=== PATIENT | female | born 1960 | race Caucasian/White ===

== ENCOUNTER 2017-12-19 09:59 | Day surgery (SDC) | payer BC ==
[2017-12-19] MEDS ORDERED: FENTAnyl 50 MCG/ML VIAL (11:44)
[2017-12-19] MEDS ORDERED: PROPOFOL 20 ML ×2 (11:44→12:33)
== END 2017-12-19 14:52 | disposition home or self-care (01) ==
LOC: GIL 09:59
DX: Z12.11 Encounter for screening for malignant neoplasm of colon (principal); D12.3 Benign neoplasm of transverse colon; K64.8 Other hemorrhoids; I10 Essential (primary) hypertension; E11.9 Type 2 diabetes mellitus without complications
CPT/HCPCS: 45380; 88305